=== PATIENT | male | born 1975 | race Caucasian/White ===

== ENCOUNTER → 2023-09-12 14:37 | Outpatient (REF) | payer OTHER, SELFPAY ==
[2023-09-12 17:09] LABS: Rubella Positive
[2023-09-18 14:15] LABS: Mumps Virus IgG Positive; Rubeola (Measles) IgG Positive; Varicella Zoster IgG (VZV) Positive
== END ==
LOC: OHS 14:37
PROVIDERS: ATTENDING PHYSICIAN Nurse Practitioner Family
DX: Z23 Encounter for immunization (principal)
CPT/HCPCS: 36415; 86735; 86762; 86765; 86787